=== PATIENT | female | born 1990 | race Caucasian/White ===

== ENCOUNTER → 2020-05-26 | Outpatient (CLI) | payer OTHER ==
[2020-05-26 11:39] LABS: ALBUMIN 3.8 GM/DL (3.2-5.2); ALT/SGPT 20 U/L (12-78); BILIRUBIN,DIRECT 0.1 MG/DL (0.0-0.2); BILIRUBIN,TOTAL 0.4 MG/DL (0.2-1.0); TOTAL PROTEIN 7.4 GM/DL (6.4-8.2)
[2020-05-26 12:01] LABS: H PYLORI QUALITATIVE IgG NEGATIVE (NEGATIVE)
[2020-05-28 06:09] LABS: IGASUB2 279.7 mg/dL (73.2-301.2); IGASUB3 36.5 mg/dL (13.4-97.9); IgA SERUM (part of Subclasses) 364 mg/dL (87-352); TISSUE TRANSGLUTAMINASE IgA <2 U/mL (0-3)
== END ==
LOC: M LAB 09:39
PROVIDERS: ATTEND Internal Medicine Gastroenterology
DX: R11.0 Nausea (principal)

== ENCOUNTER → 2020-08-07 | Outpatient (REF) | payer OTHER ==
[2020-08-11 17:07] LABS: CALPROTECTIN STOOL 40 ug/g (0-120)
== END ==
LOC: M LAB REF 17:15
PROVIDERS: ATTEND Internal Medicine Gastroenterology
DX: R19.7 Diarrhea, unspecified (principal)